=== PATIENT | female | born 1995 | race Caucasian/White ===

== ENCOUNTER 2016-06-29 13:47 | Emergency (ER) | payer SELFPAY ==
[~2016-06-29] VITALS: Ht 157.5 cm; Wt 78.6 kg
[2016-06-29] MEDS ORDERED: BACITRACIN 0.9 GM PACKET OINTMENT TP ONE (16:00)
[2016-06-29 16:13] VITALS: BP 117/72
== END 2016-06-29 16:15 | disposition home or self-care (01) ==
LOC: EMS 13:50
DX: S61.011A Laceration without foreign body of right thumb without damage to nail, initial encounter (principal); W25.XXXA Contact with sharp glass, initial encounter; Y93.89 Activity, other specified; Y92.098 Other place in other non-institutional residence as the place of occurrence of the external cause; Y99.8 Other external cause status
CPT/HCPCS: 99282